=== PATIENT | female | born 1965 | race Caucasian/White ===

== ENCOUNTER 2018-05-21 10:23 | Emergency (ER) | payer OTHER, BC ==
[~2018-05-21] VITALS: Ht 165.1 cm; Wt 88.5 kg
--- OUTSIDE RECORDS SUMMARY | 2018-05-21 10:29 | XMS REPORT | Continuity of Care Document ---
Author Author [facility] Organization [facility] Address Unknown Phone Unavailable Allergies There is no data. Medications There is no data. Problems There is no data. Procedures There is no data. Results There is no data. Encounters ACCT No. Visit Date/Time Discharge Status Pt. Type Provider Facility Loc./Unit Complaint [id number] 01/15/2013 12:55:00 01/15/2013 23:59:59 CLS Outpatient
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
[2018-05-21] MEDS ORDERED: CYCL10TA9 PO (12:17)
[2018-05-21 12:30] VITALS: BP 147/90
== END 2018-05-21 12:29 | disposition home or self-care (01) ==
LOC: EDUNIT# 10:23 → ER 10:25
DX: S09.90XA Unspecified injury of head, initial encounter (principal); R10.13 Epigastric pain; R40.2142 Coma scale, eyes open, spontaneous, at arrival to emergency department; R40.2252 Coma scale, best verbal response, oriented, at arrival to emergency department; R40.2362 Coma scale, best motor response, obeys commands, at arrival to emergency department; F17.290 Nicotine dependence, other tobacco product, uncomplicated; Z88.0 Allergy status to penicillin; V43.52XA Car driver injured in collision with other type car in traffic accident, initial encounter
CPT/HCPCS: 74176